=== PATIENT | female | born 1970 | race Caucasian/White ===

== ENCOUNTER 2017-11-18 22:48 | Observation (INO) | payer OTHER ==
--- NOTE | 2017-11-18 22:55 | PDOC ---
History of Present Illness - General History Source: Patient Exam Limitations: No Limitations - History of Present Illness Initial Comments: 11/18/17 23:49 The patient is a 47 year old female, with a significant past medical history of IBS and SVT, who presents to the emergency department with, 3 hours of left flank pain, frequency, nausea, and vomiting. As per patient, the pain was sudden onset localized to her pelvic region. She reports one episode of possible pyelonephritis in her 20s. The patient reports taking Advil and GasX, without relief prompting her visit to the ER. She denies a history of kidney stones. She denies recent fevers, chills, headache or dizziness. She denies recent nausea, vomit, diarrhea or constipation. She denies recent dysuria or hematuria. She denies recent chest pain or shortness of breath. Allergies: Morphine, levofloxacin. Past surgical history: None reported. Social history: Nonsmoker. Denies EtOH use and recreational drug use. Primary Care Physician: Dr. Saul <Roxana Whatley - Last Filed: 11/18/17 23:55> <Valerie Turner - Last Filed: 11/19/17 03:36> - General Chief Complaint: Pain, Acute Stated Complaint: LT FLANK PAIN Time Seen by Provider: 11/18/17 22:52 Past History <Roxana Whatley - Last Filed: 11/18/17 23:55> - Past Medical History Cardiac Disorders: Yes (SVT) - Suicide/Smoking/Psychosocial Hx Smoking Status: No Smoking History: Never smoked Have you smoked in the past 12 months: No Number of Cigarettes Smoked Daily: 0 Hx Alcohol Use: No Drug/Substance Use Hx: No Substance Use Type: None <Valerie Turner - Last Filed: 11/19/17 03:36> - Past Medical History Allergies/Adverse Reactions: Allergies Allergy/AdvReac Type Severity Reaction Status Date / Time levofloxacin [From Levaquin] Allergy Verified 11/26/14 18:56 morphine Allergy Verified 11/26/14 18:56 Home Medications: Ambulatory Orders No Home Medications 0 dose .ROUTE UTDICT 10/01/11 Review of Systems - Review of Systems Able to Perform ROS?: Yes Comments:: 11/18/17 23:49 CONSTITUTIONAL: Absent: fever, no chills, no fatigue EYES: Absent: visual changes ENT: Absent: ear pain, no sore throat CARDIOVASCULAR: Absent: chest pain, no palpitations RESPIRATORY: Absent: cough, no SOB GI: Present: Nausea. Vomiting. Absent: abdominal pain,no constipation, no diarrhea GENITOURINARY: Present: Left flank pain. Frequency. Absent: dysuria, no frequency, no hematuria MUSKULOSKELETAL: Absent: back pain, no arthralgia, no myalgia SKIN: Absent: rash NEURO: Absent: headache All Other Systems: Reviewed and Negative <Roxana Whatley - Last Filed: 11/18/17 23:55> *Physical Exam - Vital Signs Last Vital Signs Temp Pulse Resp BP Pulse Ox 98.5 F 88 16 130/97 97 11/18/17 22:53 11/18/17 22:53 11/18/17 22:53 11/18/17 22:53 11/18/17 22:53 - Physical Exam Comments: 11/18/17 23:51 GENERAL: The patient is awake, alert, and fully oriented, in no acute distress. HEAD: Normal with no signs of trauma. EYES: Pupils equal, round and reactive to light, extraocular movements intact, sclera anicteric, conjunctiva clear with no pallor. ENT: Ears normal, nares patent, oropharynx clear without exudates. Moist mucous membranes. NECK: Normal range of motion, supple without lymphadenopathy, JVD, or masses. LUNGS: Breath sounds equal, clear to auscultation bilaterally. No wheeze/ crackles. HEART: Regular rate and rhythm, normal S1 and S2 without murmur or rub. ABDOMEN/BACK: Moderate left flank/ CVA tenderness. Mild left lower quadrant and suprapubic tenderness. Soft/nondistended. BS wnl. No guarding or rebound. No palpable masses. No hepatosplenomegaly. EXTREMITIES: Normal range of motion, no edema. No clubbing or cyanosis. No cords, erythema, or tenderness. NEUROLOGICAL: Cranial nerves II through XII grossly intact. Normal speech, normal gait. PSYCH: Normal mood, normal affect. SKIN: Warm, Dry, normal turgor, no rashes or lesions noted. <Roxana Whatley - Last Filed: 11/18/17 23:55> - Physical Exam Comments: 12-lead electrocardiogram performed and interpreted by me: Normal sinus rhythm at 60 beats per minutes. [place], intervals and wave forms are all normal. No evidence of acute ST or T-wave abnormalities. No evidence of arrhythmia. <Valerie Turner - Last Filed: 11/19/17 03:36> ED Treatment Course - ADDITIONAL ORDERS Additional order review: Laboratory Results 11/18/17 22:55 Urine Color Yellow Urine Appearance Clear Urine pH 6.0 Ur Specific [place] >= 1.030 Urine Protein 1+ H Urine Glucose (UA) Negative Urine Ketones 1+ H Urine Blood 3+ H Urine Nitrite Negative Urine Bilirubin Negative Urine Urobilinogen 0.2 Ur Leukocyte Esterase 1+ H Urine RBC 20-40 Urine WBC 5-10 Ur Epithelial Cells Few Urine Bacteria 2+ Urine HCG, Qual Negative <Roxana Whatley - Last Filed: 11/18/17 23:55> - LABORATORY CBC & Chemistry Diagram: 11/18/17 23:50 11/18/17 23:50 <Valerie Turner - Last Filed: 11/19/17 03:36> Progress Note - Progress Note Progress Note: Documentation has been prepared under my direction and personally reviewed by me in its entirety. I attest that this documented accurately reflects all work, treatment, procedures and medical decision making performed by me. <Valerie Turner - Last Filed: 11/19/17 03:36> Medical Decision Making - Medical Decision Making As noted above, this 47-year-old woman with a history of UTI in the past but no previous history of renal stones resents with left flank/CVA pain and urinary frequency/urgency. Although she had some nausea prior to presentation the ER, this has resolved. No fever or other associated symptoms. He symptoms developed rapidly over the course of the day. Exam as noted 11/19/17 02:[address] of the abdomen and pelvis performed and interpreted by Imaging sonography technician: Mild left perinephric edema and minimal left hydroureteronephrosis due to a 2 mm calculus in the distal left ureter at the level of the acetabulum. There is also 7 mm nonobstructing right intrarenal calculus. No other significant abnormalities seen. Laboratory evaluation notable for UA positive for 1+ LE and microscopic showing 20-40 RBCs/5-10 WBCs/2+ bacteria and few epithelial cells. UA consistent with UTI/infected urine. CBC notable for mild elevation of WBCs (12,500) 11/19/17 02:29 Although ALLERGY to penicillin listed, patient denies that she has an ALLERGY to penicillin stating that' for some reason, her 's penicillin ALLERGY has been listed. Patient only has ALLERGY to levofloxacin and morphine (hives/ itching). Patient given Rocephin 1 g IV; also, because patient had persistent pain after 30 mg of Toradol IV, 1 mg Dilaudid IV given as test dose with plan to use Benadryl as needed for urticaria. 11/19/17 03:09 Patient did well with Dilaudid 1 mg IV without evidence of urticaria or other ALLERGIC reaction. Case discussed with CANDELARIA Camarena : Urology on-call (Dr. Chase Crowe) contacted and case discussed with him. Patient should be admitted for IV antibiotics and observation. Because of the possibility of renal abscess , interventional radiology may be needed. For this reason, admission to [facility] would be optimal. In any case, will see the patient tomorrow. These factors discussed with CANDELARIA Camarena: Because of unavailability of beds at [facility], patient will be admitted to [facility]. Diagnosis and plan discussed with the patient. She understands and agrees to the plan. However, she does have mitigating circumstances at home: Her is disabled and currently receiving hemodialysis. Although tomorrow's hemodialysis treatment can be handled with the help of her teenage son, hospital stay greater than 24 hours may be problematic. She does realize that perinephric/renal abscess can occur quickly and can result in critical illness. <Valerie Turner - Last Filed: 11/19/17 03:36> *DC/Admit/Observation/Transfer - Attestations Scribe Attestion: 11/18/17 23:51 Documentation prepared by Roxana Whatley, acting as senior medical transcriptionist for Valerie Turner MD. <Roxana Whatley - Last Filed: 11/18/17 23:55> - Discharge Dispostion Decision to Admit order: Yes <Valerie Turner - Last Filed: 10/05/18 03:36> Diagnosis at time of Disposition: Ureteral stone with hydronephrosis UTI (urinary tract infection) Qualifiers: Urinary tract infection type: site unspecified Hematuria presence: with hematuria Qualified Code(s): N39.0 - Urinary tract infection, site not specified - Discharge Dispostion Condition at time of disposition: Stable
[2017-11-18 23:06] LABS: HCG,QUALITATIVE URINE Negative
[2017-11-18 23:08] LABS: URINE APPEARANCE Clear; URINE BILIRUBIN Negative (NEGATIVE); URINE COLOR Yellow; URINE GLUCOSE (UA) Negative (NEGATIVE); URINE KETONE 1+ (NEGATIVE); URINE LEUK ESTERASE 1+ (NEGATIVE); URINE NITRITE Negative (NEGATIVE); URINE PROTEIN 1+ (NEGATIVE); URINE UROBILINOGEN 0.2 (0.2-1.0)
[2017-11-18 23:20] LABS: EPI CELLS FEW /HPF; URINE BACTERIA 2+ /hpf (NEGATIVE); URINE RBC 20-40 /hpf (0-3)
[2017-11-18] MEDS ORDERED: KETOROLAC TROMETHAMINE 30 MG/1 ML VIAL IVPUSH ONE (23:40)
[2017-11-18] MEDS ORDERED: SODIUM CHLORIDE 1,000 ML IV STA (23:40)
[2017-11-18] MEDS ORDERED: KETOROLAC TROMETHAMINE 30 MG/1 ML VIAL ONE (23:43)
[2017-11-19 01:29] LABS: BASO % 0.3 % (0-2.0); HEMATOCRIT 39.5 % (32.4-45.2); HEMOGLOBIN 13.2 GM/dL (10.7-15.3); MCH 29.2 pg (25.7-33.7); MCHC 33.3 g/dl (32.0-36.0); MEAN CELL VOLUME 87.6 fl (80-96); MEAN PLT VOLUME 9.1 fl (7.5-11.1); MONO % 6.5 % (3.8-10.2); NEUT % 68.2 % (42.8-82.8); PLATELET COUNT 401 K/MM3 (134-434); RBC 4.51 M/mm3 (3.60-5.2); RDW 14.1 % (11.6-15.6); WHITE BLOOD COUNT 12.5 K/mm3 (4.0-10.0)
[2017-11-19] MEDS ORDERED: CEFTRIAXONE 1,000 MG in DEXTROSE 5%-WATER - 50 ML IVPB ONE (01:56)
[2017-11-19] MEDS ORDERED: cefTRIAXone SODIUM 1 GM VIAL ONE (01:57)
[2017-11-19] MEDS ORDERED: HYDROmorphone HCL CARPU-JECT 1 MG/1 ML DISP.SYRIN ONE (01:57)
[2017-11-19 02:02] LABS: ALBUMIN 3.6 g/dl (3.4-5.0); ALK PHOS 74 U/L (45-117); ANION GAP 8 MMOL/L (8-16); BILIRUBIN,TOTAL 0.4 mg/dL (0.2-1); BLOOD UREA NITROGEN 17 mg/dL (7-18); CALCIUM 8.7 mg/dL (8.5-10.1); CHLORIDE 106 mmol/L (98-107); CO2 26 mmol/L (21-32); GLUCOSE,RANDOM 86 mg/dL (74-106); POTASSIUM 4.2 mmol/L (3.5-5.1); SGOT/AST 26 U/L (15-37); SGPT/ALT 30 U/L (13-61); SODIUM 140 mmol/L (136-145)
[2017-11-19] MEDS ORDERED: HYDROmorphone HCL CARPU-JECT 1 MG/1 ML DISP.SYRIN IVPUSH ONE (02:04)
--- NOTE | 2017-11-19 02:28 | PN ---
Teaching Attending Note Name of Resident: Gustavo Mera ATTENDING PHYSICIAN STATEMENT I saw and evaluated the patient. I reviewed the resident's note and discussed the case with the resident. I agree with the resident's findings and plan as documented. SUBJECTIVE: OBJECTIVE: ASSESSMENT AND PLAN:
[2017-11-19] MEDS ORDERED: DEXTROSE 5%-0.45% SALINE 1,000 ML IV SCH (04:15)
[2017-11-19] MEDS ORDERED: ACETAMINOPHEN 1000 MG/100 ML VIAL (NON FORMULARY) IVPB PRN (04:21)
[2017-11-19 04:22] VITALS: BMI 39.9
--- NOTE | 2017-11-19 07:44 | HP ---
CHIEF COMPLAINT: left flank pain PCP: Dr Ag Compliance Associate: Dr Mai HISTORY OF PRESENT ILLNESS: Patient is a 47 y/o female with a past medical history of SVT. Patient reports at 400am on this date, she developed left severe sharp left flank pain with nausea and vomiting. She denies any fever. ER course was notable for: (1) ct scan of abd/pelvis w/o contrast: 2mm distal left uretral calculus with mild hydronephrosis, right nephrolithasis (2)urinalysis: +1 leukocytes, +3 blood (3)wbc 12.5, no shift Recent Travel: none PAST MEDICAL HISTORY: see hpi PAST SURGICAL HISTORY: , choleystectomy Social History: , employed, works in advertising Smoking: none Alcohol:none Drugs: none Family History: see hpi Allergies levofloxacin [From Levaquin] Allergy (Verified 11/26/14 18:56) morphine Allergy (Verified 11/26/14 18:56) HOME MEDICATIONS: Home Medications Medication Instructions Recorded No Home Medications 0 dose .ROUTE UTDICT 10/01/11 REVIEW OF SYSTEMS CONSTITUTIONAL: Absent: fever, chills, diaphoresis, generalized weakness, malaise, loss of appetite, weight change HEENT: Absent: rhinorrhea, nasal congestion, throat pain, throat swelling, difficulty swallowing, mouth swelling, ear pain, eye pain, visual changes CARDIOVASCULAR: Absent: chest pain, syncope, palpitations, irregular heart rate, lightheadedness , peripheral edema RESPIRATORY: Absent: cough, shortness of breath, dyspnea with exertion, orthopnea, wheezing, stridor, hemoptysis GASTROINTESTINAL: present: flank pain Absent: abdominal pain, abdominal distension, nausea, vomiting, diarrhea, constipation, melena, hematochezia GENITOURINARY: Absent: dysuria, frequency, urgency, hesitancy, hematuria, flank pain, genital pain MUSCULOSKELETAL: Absent: myalgia, arthralgia, joint swelling, back pain, neck pain SKIN: Absent: rash, itching, pallor HEMATOLOGIC/IMMUNOLOGIC: Absent: easy bleeding, easy bruising, lymphadenopathy, frequent infections ENDOCRINE: Absent: unexplained weight gain, unexplained weight loss, heat intolerance, cold intolerance NEUROLOGIC: Absent: headache, focal weakness or paresthesias, dizziness, unsteady gait, seizure, mental status changes, bladder or bowel incontinence PSYCHIATRIC: Absent: anxiety, depression, suicidal or homicidal ideation, hallucinations. PHYSICAL EXAMINATION Vital Signs - 24 hr 11/18/17 11/19/17 22:53 03:12 Temperature 98.5 F 98.2 F Pulse Rate 88 66 Respiratory 16 20 Rate Blood Pressure 130/97 111/77 O2 Sat by Pulse 97 100 Oximetry (%) GENERAL: Awake, alert, and fully oriented, in no acute distress. HEAD: Normal with no signs of trauma. EYES: Pupils equal, round and reactive to light, extraocular movements intact, sclera anicteric, conjunctiva clear. No lid lag. EARS, NOSE, THROAT: Ears normal, nares patent, oropharynx clear without exudates. Moist mucous membranes. NECK: Normal range of motion, supple without lymphadenopathy, JVD, or masses. LUNGS: Breath sounds equal, clear to auscultation bilaterally. No wheezes, and no crackles. No accessory muscle use. HEART: Regular rate and rhythm, normal S1 and S2 without murmur, rub or gallop. ABDOMEN: Soft, nontender, not distended, normoactive bowel sounds, no guarding, no rebound, no masses. No hepatomegaly or splenomegaly. MUSCULOSKELETAL: Normal range of motion at all joints. No bony deformities or tenderness. No CVA tenderness. UPPER EXTREMITIES: 2+ pulses, warm, well-perfused. No cyanosis. No clubbing. No peripheral edema. LOWER EXTREMITIES: 2+ pulses, warm, well-perfused. No calf tenderness. No peripheral edema. NEUROLOGICAL: Cranial nerves II-XII intact. Normal speech. Normal gait. PSYCHIATRIC: Cooperative. Good eye contact. Appropriate mood and affect. SKIN: Warm, dry, normal turgor, no rashes or lesions noted, normal capillary refill. Laboratory Results - last 24 hr 11/18/17 11/18/17 11/18/17 22:55 23:50 23:50 WBC 12.5 H RBC 4.51 Hgb 13.2 Hct 39.5 MCV 87.6 MCH 29.2 MCHC 33.3 RDW 14.1 Plt Count 401 MPV 9.1 Absolute Neuts (auto) 8.5 H Neutrophils % 68.2 Lymphocytes % 23.0 Monocytes % 6.5 Eosinophils % 2.0 Basophils % 0.3 Nucleated RBC % 0 Sodium 140 Potassium 4.2 Chloride 106 Carbon Dioxide 26 Anion Gap 8 BUN 17 Creatinine 1.0 Creat Clearance w eGFR 58.93 Random Glucose 86 Calcium 8.7 Total Bilirubin 0.4 AST 26 ALT 30 Alkaline Phosphatase 74 Total Protein 7.0 Albumin 3.6 Urine Color Yellow Urine Appearance Clear Urine pH 6.0 Ur Specific [place] >= 1.030 Urine Protein 1+ H Urine Glucose (UA) Negative Urine Ketones 1+ H Urine Blood 3+ H Urine Nitrite Negative Urine Bilirubin Negative Urine Urobilinogen 0.2 Ur Leukocyte Esterase 1+ H Urine RBC 20-40 Urine WBC 5-10 Ur Epithelial Cells Few Urine Bacteria 2+ Urine HCG, Qual Negative ASSESSMENT/PLAN: 1) left hydronephrosis w/non obstructing renal calculi -ct scan of abd/pelvis reviewed, will continue flomax and iv hydration - continue to strain urine - case discussed with urologist Dr. Howard advised to continue flomax, pt will require followup with urology - +1 leukocytes noted in the urinalysis will continue Rocephin pending urine culture 2) cardiovascular SVT - Normal sinus rhythm rhythm on EKG, she reports she takes metoprolol as needed close following f/e/n - npo-->ivf - replete electrolytes prn ppx - less than 2mn will defer - scd dispo: pt requies obsv admission Visit type - Emergency Visit Emergency Visit: Yes ED Registration Date: 11/19/17 Care time: The patient presented to the Emergency Department on the above date and was hospitalized for further evaluation of their emergent condition. - New Patient This patient is new to me today: Yes Date on this admission: 11/19/17 - Critical Care Critical Care patient: No
[2017-11-19 08:29] LABS: BASO % 0.4 % (0-2.0); EOS % 0.9 % (0-4.5); HEMATOCRIT 34.9 % (32.4-45.2); HEMOGLOBIN 11.7 GM/dl (10.7-15.3); LYMPH % 21.8 % (8-40); MCH 29.8 pg (25.7-33.7); MCHC 33.6 g/dl (32.0-36.0); MEAN CELL VOLUME 88.7 fl (80-96); MEAN PLT VOLUME 8.9 fl (7.5-11.1); MONO % 5.1 % (3.8-10.2); NEUT % 71.8 % (42.8-82.8); PLATELET COUNT 305 K/MM3 (134-434); RBC 3.94 M/mm3 (3.60-5.2); WHITE BLOOD COUNT 10.5 K/mm3 (4.0-10.8)
[2017-11-19] MEDS ORDERED: TAMSULOSIN HCL 0.4 MG CAP.ER.24H (FP) PO SCH (08:30)
[2017-11-19 08:44] LABS: ANION GAP 4 MMOL/L (8-16); BLOOD UREA NITROGEN 16 mg/dl (7-18); CALCIUM 8.3 mg/dl (8.4-10.2); CHLORIDE 108 mmol/L (98-107); CO2 25 mmol/L (22-28); CREATININE 0.8 mg/dl (0.6-1.3); GLUCOSE,RANDOM 113 mg/dl (74-106); POTASSIUM 4.2 mmol/L (3.5-5.1); SODIUM 137 mmol/L (136-145)
--- NOTE | 2017-11-19 09:33 | EKG ---
Test Reason : Blood Pressure : / mmHG Vent. Rate : 060 BPM Atrial Rate : 060 BPM P-R Int : 142 ms QRS Dur : 086 ms QT Int : 462 ms P-R-T Axes : 013 031 043 degrees QTc Int : 462 ms NORMAL SINUS RHYTHM NORMAL ECG NO PREVIOUS ECGS AVAILABLE Confirmed by EPIFANIO PUGH MD ([id number]) on 11/19/2017 9:33:18 AM Referred By: MAXIMINO CRESPO Confirmed By:EPIFANIO PUGH MD
[2017-11-19] MEDS ORDERED: FLU VACCINE QUAD 60 MCG/0.5 ML (MDV 18-19) IM ONE (10:00)
[2017-11-19] MEDS ORDERED: MAGNESIUM 1GM/D5W 100ML - 100 ML IVPB IVPB ONE (14:00)
[2017-11-19] MEDS ORDERED: KETOROLAC TROMETHAMINE 30 MG/1 ML VIAL IVPUSH ONE (14:00)
[2017-11-19] MEDS ORDERED: ACETAMINOPHEN/CAFFEINE/BUTALBITAL 1 TAB PO ONE (14:00)
[2017-11-20 06:56] VITALS: BP 106/69; PULSE 50; TEMP 97.7
[2017-11-20] MEDS ORDERED: CEFTRIAXONE 1 GM/50 ML BAG IVPB SCH (10:00)
--- NOTE | 2017-11-20 23:12 | DS ---
Physical Exam: SUBJECTIVE: Patient seen and examined. Left flank pain is now a dull ache. No dysuria, urgency, frequency. No hematuria. OBJECTIVE: Vital Signs Period Temp Pulse Resp BP Sys/Patel Pulse Ox Last 24 Hr 97.7 F 50 18-18 106/69 97-97 PHYSICAL EXAM GENERAL: The patient is awake, alert, and fully oriented, in no acute distress. LUNGS: Breath sounds equal, clear to auscultation bilaterally, no wheezes, no crackles, no accessory muscle use. HEART: Regular rate and rhythm, S1, S2 ABDOMEN: Soft, nontender, nondistended, normoactive bowel sounds; no CVA tenderness EXTREMITIES: 2+ pulses, warm, well-perfused, no edema. NEUROLOGICAL: Cranial nerves II through XII grossly intact. Normal speech, gait not observed. Moving all extremities freely. LABS CBCD WBC 10.5 K/mm3 (4.0-10.8) 11/19/17 07:40 RBC 3.94 M/mm3 (3.60-5.2) 11/19/17 07:40 Hgb 11.7 GM/dl (10.7-15.3) 11/19/17 07:40 Hct 34.9 % (32.4-45.2) 11/19/17 07:40 MCV 88.7 fl (80-96) 11/19/17 07:40 MCHC 33.6 g/dl (32.0-36.0) 11/19/17 07:40 RDW 13.0 % (11.6-15.6) 11/19/17 07:40 Plt Count 305 K/MM3 (134-434) 11/19/17 07:40 MPV 8.9 fl (7.5-11.1) 11/19/17 07:40 CMP Sodium 137 mmol/L (136-145) 11/19/17 07:40 Potassium 4.2 mmol/L (3.5-5.1) 11/19/17 07:40 Chloride 108 mmol/L (98-107) H 11/19/17 07:40 Carbon Dioxide 25 mmol/L (22-28) 11/19/17 07:40 Anion Gap 4 MMOL/L (8-16) L 11/19/17 07:40 BUN 16 mg/dl (7-18) 11/19/17 07:40 Creatinine 0.8 mg/dl (0.6-1.3) 11/19/17 07:40 Creat Clearance w eGFR > 60 (>60) 11/19/17 07:40 Calcium 8.3 mg/dl (8.4-10.2) L 11/19/17 07:40 Total Bilirubin 0.4 mg/dL (0.2-1) 11/18/17 23:50 AST 26 U/L (15-37) 11/18/17 23:50 ALT 30 U/L (13-61) 11/18/17 23:50 Alkaline Phosphatase 74 U/L (45-117) 11/18/17 23:50 Total Protein 7.0 g/dl (6.4-8.2) 11/18/17 23:50 Albumin 3.6 g/dl (3.4-5.0) 11/18/17 23:50 HOSPITAL COURSE: Date of Admission:11/19/17 Date of Discharge: 11/20/17 Pre hospital course Patient is a 47 year-old female with a past medical history of SVT. Placed on observation for pain secondary to a ureteral calculus. ER course (1) ct scan of abd/pelvis w/o contrast: 2mm distal left uretral calculus with mild hydronephrosis, right nephrolithasis (2)urinalysis: +1 leukocytes, +3 blood (3)wbc 12.5, afebrile Subsequent hospital course Left hydronephrosis w/non obstructing renal calculi --CTAP: 2mm distal left ureteral calculus with mild hydronephrosis --treated with IV fluids and tamsulosin --urine strained --outpatient followup with Dr. Howard h/o SVT --sinus rhythm during hospital stay, not on regular medication Minutes to complete discharge: 35 Discharge Summary Reason For Visit: UTI, hydronephrosis with obstruction due to calcul Condition: Improved - Instructions Diet, Activity, Other Instructions: Two prescriptions have been sent to your pharmacy. One is for Bactrim which is an antibiotic, and one is for tamsulosin which should aid urination and passage of the kidney stone. Take these medications as directed. It is recommended you follow up with your primary care provider in one week. Return to the emergency department for any new or worsening symptoms. Referrals: Lilia Saul [Primary Care Provider] - 1 Week Disposition: HOME - Home Medications Comprehensive Discharge Medication List: Ambulatory Orders No Home Medications 0 dose .ROUTE UTDICT 10/01/11 Sulfamethoxazole/Trimethoprim [Bactrim Ds -] 1 tab PO BID #14 tablet 11/20/17 Tamsulosin HCl [Flomax -] 0.4 mg PO DAILY@0830 #14 cap.er.24h 11/20/17 This patient is new to me today: Yes Date on this admission: 11/22/17 Emergency Visit: Yes ED Registration Date: 11/19/17 Care time: The patient presented to the Emergency Department on the above date and was hospitalized for further evaluation of their emergent condition. Critical Care patient: No - Discharge Referral Referred to [facility] No
== END 2017-11-20 13:00 | disposition home or self-care (01) ==
LOC: FER 22:48 → FM/S 11-19 03:12
PROVIDERS: ADMIT Internal Medicine; ATTEND Nurse Practitioner Acute Care
PROC: 3E03329 Introduction of Other Anti-infective into Peripheral Vein, Percutaneous Approach (ICD-10-PCS; principal; 2017-11-19)
PROC: 3E033NZ Introduction of Analgesics, Hypnotics, Sedatives into Peripheral Vein, Percutaneous Approach (ICD-10-PCS; 2017-11-19)
PROC: 3E0333Z Introduction of Anti-inflammatory into Peripheral Vein, Percutaneous Approach (ICD-10-PCS; 2017-11-19)
PROC: 3E033GC Introduction of Other Therapeutic Substance into Peripheral Vein, Percutaneous Approach (ICD-10-PCS; 2017-11-19)
PROC: 3E0337Z Introduction of Electrolytic and Water Balance Substance into Peripheral Vein, Percutaneous Approach (ICD-10-PCS; 2017-11-19)
PROC: 3E0234Z Introduction of Serum, Toxoid and Vaccine into Muscle, Percutaneous Approach (ICD-10-PCS; 2017-11-19)
DX: N13.2 Hydronephrosis with renal and ureteral calculous obstruction (principal); N39.0 Urinary tract infection, site not specified; Z88.1 Allergy status to other antibiotic agents; Z88.6 Allergy status to analgesic agent
CPT/HCPCS: 36415; 71046-TC-FY; 74176; 80048; 80053; 81003; 81015; 84703; 85025; 87040; 87086; 90688; 93005; 99284-25; G0378; J0131; J7030

== ENCOUNTER 2021-04-15 08:11 | Emergency (ER) | payer OTHER ==
[2021-04-15] MEDS ORDERED: IBUPROFEN 600 MG TABLET (FP) PO ONE ×2 (08:18→08:21)
[2021-04-15 08:28] VITALS: BP 124/75; PULSE 75; TEMP 99.1; BMI 38.6
== END 2021-04-15 09:47 | disposition home or self-care (01) ==
LOC: FER 08:11
DX: S86.912A Strain of unspecified muscle(s) and tendon(s) at lower leg level, left leg, initial encounter (principal); X50.0XXA Overexertion from strenuous movement or load, initial encounter
CPT/HCPCS: 73560-TC-LT-FY; 99283-25